=== PATIENT | female | born 1930 | race Caucasian/White ===

== ENCOUNTER 2018-06-13 20:09 | Observation (INO) ==
--- NOTE | 2018-06-13 23:20 | Internal Med History&Physical ---
Date of Encounter: 06/14/18 Time of Encounter: 23:20 Internal Medicine - H&P: HPI Chief complaint: AFib from doctors office Admitted From: Hospital to Hospital Transfer Plans for Post Hospital Care: Transfer [facility] Care History of present illness: Ms. Obregon is a 88 year old female with a PMhx of chronic AFib, CHF, dementia, DM2, HLD, HTN presented to [place] from (insurance processing clerk) office due to AFib with RVR. She is notably AOx2 and does not appear to be a good historian. She states that she was told to go to [place] ED due to her heart racing but states she was asymptomatic. She denies chest pain, SOB, palpitations , dizziness or lightheadedness. She has not had recent illness or medications changes that she knows of . Denies fevers, chills, nausea, vomiting, changes to bowel movements, dysuria or frequency, cough. She is anticoagulated with Pradaxa. She does admit to poor oral oral intake recently and states she may be dehydrated. In [place] ED, EKG confirmed AFib RVR with rate in 120s. Vital significant for tachycardia and blood pressure was borderline at 91/74. She was tolerating room air. Lab results significant for WBC elevation of 20.3, BUN/creatinine/ creatinine of 42/1.65, magnesium of 1.5, urinalysis showing small amount of leukocyte esterase, WBCs. Lactic acid of 2.1. Past medical history as above Past surgical history patient denies Past social history patient denies Past Med Surg Social Fam HX - Past Medical History Medical history: atrial fibrillation, CHF, dementia, diabetes, hyperlipidemia, hypertension Psychiatric history: anxiety, depression - Social History Smoking Status: Unknown if ever smoked Smokeless Tobacco Status: No Alcohol use: none Drug use: none Internal Medicine - H&P: Meds Atorvastatin [Lipitor] 10 mg PO HS 06/13/18 [History] Cholecalciferol (Vitamin D3) [Vitamin D] 1,000 unit PO DAILY 06/13/18 [History] Cyanocobalamin (Vitamin B-12) [Vitamin B-12] 1,000 mcg PO DAILY 06/13/18 [ History] Dabigatran [Pradaxa] 150 mg PO BID 06/13/18 [History] Dextromethorphan HBr/Quinidine [Nuedexta 20-10 mg Capsule] 1 each PO BID [History] Divalproex Sodium [Depakote] 125 mg PO TID 06/13/18 [History] Duloxetine HCl [Cymbalta] 60 mg PO DAILY 06/13/18 [History] Ferrous Sulfate [Iron] 325 mg PO DAILY 06/13/18 [History] Furosemide [Lasix] 20 mg PO DAILY 06/13/18 [History] Gabapentin [Neurontin] 100 mg PO TID 06/13/18 [History] LORazepam [Ativan] 0.5 mg PO BID PRN 06/13/18 [History] Lisinopril [Zestril] 20 mg PO DAILY 06/13/18 [History] Magnesium Hydroxide [Milk of Magnesia] 400 mg PO 06/13/18 [History] Memantine [Namenda] 5 mg PO BID 06/13/18 [History] Memantine [Namenda] 5 mg PO BID 06/13/18 [History] Metformin HCl 500 mg PO BID 06/13/18 [History] Metoprolol [Lopressor] 100 mg PO BID 06/13/18 [History] Mirtazapine [Remeron] 15 mg PO HS 06/13/18 [History] Mv,Calcium,Min/Iron/Folic/Vitk [Multi For Her Tablet] 1 each PO DAILY 06/13/18 [ History] Polyethylene Glycol 3350 [MiraLAX Powder Bulk 17.9 Oz] 1 scoop PO DAILY [History] Sennosides [Senokot] 17.2 mg PO DAILY 06/13/18 [History] glipiZIDE [Glucotrol] 5 mg PO DAILY 06/13/18 [History] raNITIdine HCl [Zantac] 150 mg PO HS 06/13/18 [History] 3 Allergy/AdvReac Type Severity Reaction Status Date / Time No Known Allergies Allergy Verified 06/13/18 17:12 All Systems PM: A 10-system review of systems was performed and is negative for pertinent findings except as documented above in the HPI. - Constitutional Constitutional: no chills, no fatigue, no fever(s), no malaise - Cardiovascular Cardiovascular ROS IM: no chest pain, no dyspnea, no dyspnea on exertion, no edema, no lightheadedness, no orthopnea - Respiratory Respiratory: no cough, no dyspnea, no dyspnea on exertion - Gastrointestinal Gastrointestinal: no abdominal pain, no constipation, no diarrhea, no hematochezia, no melena, no nausea, no vomiting - Genitourinary Genitourinary: no dysuria, no flank pain, no urinary frequency, no urinary incontinence, no urinary urgency - Musculoskeletal Musculoskeletal ROS IM: no numbness, no tingling - Integumentary Integumentary IM: no rash - Neurological Neurological ROS: no confusion, no numbness, no tingling, no vertigo, no weakness - Constitutional Vitals: Temp Pulse Resp BP Pulse Ox 98.1 F 62 14 96/62 96 06/13/18 22:45 06/13/18 22:45 06/13/18 22:45 06/13/18 22:45 06/13/18 22:45 Exam: Gen.: Vitals noted. No acute distress. AAOx2, resting comfortably in bed HEENT: PERRL/EOMI, oropharynx clear, Normocephalic, atraumatic, mildly dry mucus membranes Cardiac: Irregularly irregular, no murmur, +S1/S2, rate controlled Pulmonary: CTA bilaterally, no wheezes, rales or rhonchi, equal chest expansion Abdomen: soft, nontender, BS noted, no guarding, no rebound. Back, no flank tenderness bilaterally Extremities: no BLE edema, nontender calf, no cyanosis or clubbing, some bruising noted Neuro: A&Ox2, moves all extremities, no focal deficits Psych: Appropriate mood and behavior - Assessment and plan (1) Severe sepsis Current Visit: Yes Status: Acute Assessment and plan: - Tachycardic in 120s, WBC of 20.3 at [place], lactic acid of 2.1 - Likely source is UTI given UA with LE and WBC - Urine and blood culture collected in [place] and pending results - Previous cultures (03/17) show E.coli - Started on rocephin, will continue - 1L NS given in ED Plan - Continue Rocephin 1g q24 hours - Trend lactate - Give another 1L bolus over 4 hours as she is mildly hypotensive at this time in 90s/60s - HR controlled after cardizem gtt as below. - Follow culture results. (2) UTI (urinary tract infection) Current Visit: Yes Status: Acute Assessment and plan: - As above - Rocephin, fluids, follow lactic acid Qualifiers: Urinary tract infection type: acute cystitis Hematuria presence: without hematuria Qualified Code(s): N30.00 - Acute cystitis without hematuria (3) Atrial fibrillation with RVR Current Visit: Yes Status: Acute Assessment and plan: Resolved. - Chronic AFib on Metoprolol 100 mg BID and pradaxa - EKG confirmation from [place] reviewed. Troponin negative - Likely exacerbated in the setting of infection, dehydration - HR currently in 60s with boarderline BP - Giving fluids and will monitor - Continue BB when BP allows - Continue home AC. (4) YRIS (acute kidney injury) Current Visit: Yes Status: Acute Assessment and plan: BUN/ Cr of 42/1.65 in [place]. Baseline Cr of 1.2 (CKD3) - Likely secondary to dehydration, patient admits to poor oral intake - Other possibilities include UTI/pyelonephritis however patient denies flank pain and is afebrile - Fluids as above. Given additional 1L and re-evaluate with lactic and AM labs - Continue to monitor (5) Diabetes mellitus Current Visit: Yes Status: Acute Assessment and plan: - BS of 225 on admission. - likely elevated in the setting of infection - Start SSI and obtain A1c with AM labs - Continue to monitor. ADA diet Qualifiers: Diabetes mellitus type: type 2 Diabetes mellitus mcfp insulin use: without terminal clerk use Diabetes mellitus complication status: with kidney complications Diabetes mellitus complication detail: with chronic kidney disease Chronic kidney disease stage: stage 3 (moderate) Qualified Code(s): E11.22 - Type 2 diabetes mellitus with diabetic chronic kidney disease; N18.3 - Chronic kidney disease, stage 3 (moderate) (6) HTN (hypertension) Current Visit: Yes Status: Chronic Assessment and plan: - BP in 90s/60s most recently, likely secondary to cardizem gtt in [place] ED - Will continue to monitor and hold AM meds - Give fluids as above - Restart BB as BP tolerates in AM Qualifiers: Hypertension type: essential hypertension Qualified Code(s): I10 - Essential (primary) hypertension (7) HLD (hyperlipidemia) Current Visit: Yes Status: Chronic Assessment and plan: continue statin. - Consider discontinuing as she is >85 years old Qualifiers: Hyperlipidemia type: unspecified Qualified Code(s): E78.5 - Hyperlipidemia , unspecified (8) Dementia Current Visit: Yes Status: Acute Assessment and plan: - Unclear baseline, AOx2 - Continue home meds Qualifiers: Dementia type: Alzheimer's disease Alzheimer's disease onset: unspecified onset Dementia behavioral disturbance: without behavioral disturbance Qualified Code(s): G30.9 - Alzheimer's disease, unspecified; F02.80 - Dementia in other diseases classified elsewhere without behavioral disturbance (9) DVT prophylaxis Current Visit: Yes Status: Acute Assessment and plan: continue home pradaxa - Time Spent With Patient Total time spent is greater than 50% in coordination of care (as documented) at patient's floor/unit and/or counseling patient:
[2018-06-13] MEDS ORDERED: traMADol 50 MG TABLET PO PRN (23:48)
[2018-06-13] MEDS ORDERED: Naloxone 0.4 MG/ML INJ IVP PRN (23:48)
[2018-06-13] MEDS ORDERED: Acetaminophen 325 MG TABLET PO PRN (23:48)
[2018-06-13] MEDS ORDERED: Dextrose Gel 15 GM/37.5 ML TUBE PO PRN ×2 (23:49)
[2018-06-13] MEDS ORDERED: D5% in Water 1,000 ML IVC PRN (23:49)
[2018-06-13] MEDS ORDERED: *HR* Dextrose 50 % in Water (Syg) 50 ML SYRINGE IVP PRN (23:49)
[2018-06-13] MEDS ORDERED: *HR* LORazepam 0.5 MG TABLET PO PRN (23:50)
[2018-06-14] MEDS ORDERED: 0.9 % Sodium Chloride 1,000 ML IVC SCH (00:15)
[2018-06-14 05:57] LABS: Basophils % 0.2 %; Eosinophils # 0.1 K/mcL (0.0-0.6); Hematocrit 30.9 % (35.3-44.9); Hemoglobin 9.8 g/dL (11.5-15.4); Immature Granulocytes % 0.3 % (0-4); Lymphocytes # 2.1 K/mcL (0.6-4.6); Mean Corpuscular HGB Conc 31.7 g/dL (31.6-35.5); Mean Corpuscular Hemoglobin 30.2 pg (28.0-33.3); Mean Corpuscular Volume 95.1 fL (83.0-100.0); Mean Platelet Volume 10.4 fL (9.4-12.4); Monocytes # 1.1 K/mcL (0.0-1.3); Monocytes % 8.1 %; Neutrophils # 9.8 K/mcL (1.6-8.9); Platelet Count 150 K/mcL (140-400); Red Blood Count 3.25 M/mcL (3.82-4.97); Red Cell Distribution Width 13.7 % (11.5-14.5); Segmented Neutrophils % 74.4 %
--- NOTE | 2018-06-14 06:40 | Sepsis Event Note ---
Sepsis Reassessment Note - Evaluation Sepsis Screen: No Definite Risk Current Stage of Sepsis: ruled out (resolved, 1/ SIRS) Reason for ruling out sepsis: No longer meets SIRS criteria. HR in 60s, lactic acid improved to 1.0. WBC remains elevated at 13 Possible Source of Sepsis: genitourinary - Focused Exam Date of Encounter: 06/14/18 Time of Encounter: 06:37 Vital Signs: Vital Signs Temp Pulse Resp BP Pulse Ox 06/14/18 04:20 97.8 F 78 15 93/60 96 06/13/18 22:45 98.1 F 62 14 96/62 96 Respiratory Exam: Present: CTA bilaterally Cardiovascular Exam: Present: irregulary irregular Capillary Refill: < 2 seconds Peripheral Pulse Strength: 2+ slightly diminished Peripheral Pulse Location: Radial Skin Exam: normal turgor
[2018-06-14 06:47] LABS: Calcium 7.5 mg/dL (8.6-10.3); Magnesium 1.7 mg/dL (1.6-2.6); Potassium 3.6 mEq/L (3.5-5.1)
[2018-06-14] MEDS: Insulin LISPRO 300 UNITS/3 ML VIAL SQ SCH ×3 (08:06→16:46)
[2018-06-14] MEDS: cefTRIAXone 1,000 MG in Water for inj. (sterile) 20 ML 10 ML IVP SCH (08:19)
[2018-06-14] MEDS: Sennosides 8.6 MG TABLET PO SCH (08:59)
[2018-06-14] MEDS: *HR* Dabigatran 75 MG CAPSULE PO SCH ×2 (08:59→20:51)
[2018-06-14] MEDS: Divalproex Sodium 125 MG CAPSULE PO SCH ×3 (08:59→20:51)
[2018-06-14] MEDS: Gabapentin 100 MG CAPSULE PO SCH ×3 (08:59→20:51)
[2018-06-14] MEDS ORDERED: *HR* Dabigatran 150 MG CAPSULE PO SCH (09:00)
--- NOTE | 2018-06-14 13:52 | Internal Med Progress Note ---
Hospitalist Progress Note - Encounter Date of Encounter: 06/14/18 Time of Encounter: 13:00 - Subjective Interval History: No acute events overnight - Exam Vitals: Temp Pulse Resp BP Pulse Ox 99.3 F 116 17 101/61 96 06/14/18 11:28 06/14/18 11:28 06/14/18 11:28 06/14/18 11:28 06/14/18 11:28 Exam: Gen.: Vitals noted. No acute distress. AAOx2, resting comfortably in bed HEENT: PERRL/EOMI, oropharynx clear, Normocephalic, atraumatic, mildly dry mucus membranes Cardiac: Irregularly irregular, no murmur, +S1/S2, rate controlled Pulmonary: CTA bilaterally, no wheezes, rales or rhonchi, equal chest expansion Abdomen: soft, nontender, BS noted, no guarding, no rebound. Back, no flank tenderness bilaterally Extremities: no BLE edema, nontender calf, no cyanosis or clubbing, some bruising noted Neuro: A&Ox2, moves all extremities, no focal deficits Psych: Appropriate mood and behavior - Assessment and Plan (1) Severe sepsis Current Visit: Yes Status: Acute Assessment and Plan: - Tachycardic in 120s, WBC of 20.3 at [place], lactic acid of 2.1 - Likely source is UTI given UA with LE and WBC - Urine and blood culture collected in [place] and pending results - Previous cultures (03/17) show E.coli - Started on rocephin, will continue - 1L NS given in ED O06/14. Continue on ceftriaxone. Started on po beta blockers for afib (2) Atrial fibrillation with RVR Current Visit: Yes Status: Acute Assessment and Plan: Resolved. - Chronic AFib on Metoprolol 100 mg BID and pradaxa - EKG confirmation from [place] reviewed. Troponin negative - Likely exacerbated in the setting of infection, dehydration - HR currently in 60s with boarderline BP - Giving fluids and will monitor - Continue BB when BP allows - Continue home AC. 06/14. Started on metoprolol po (3) UTI (urinary tract infection) Current Visit: Yes Status: Acute Assessment and Plan: - As above - Rocephin, fluids, follow lactic acid (4) YRIS (acute kidney injury) Current Visit: Yes Status: Acute Assessment and Plan: BUN/ Cr of 42/1.65 in [place]. Baseline Cr of 1.2 (CKD3) - Likely secondary to dehydration, patient admits to poor oral intake - Other possibilities include UTI/pyelonephritis however patient denies flank pain and is afebrile - Fluids as above. Given additional 1L and re-evaluate with lactic and AM labs - Continue to monitor (5) DVT prophylaxis Current Visit: Yes Status: Acute Assessment and Plan: continue home pradaxa (6) Diabetes mellitus Current Visit: Yes Status: Acute Assessment and Plan: - BS of 225 on admission. - likely elevated in the setting of infection - Start SSI and obtain A1c with AM labs - Continue to monitor. ADA diet (7) HTN (hypertension) Current Visit: Yes Status: Chronic Assessment and Plan: - BP in 90s/60s most recently, likely secondary to cardizem gtt in [place] ED - Will continue to monitor and hold AM meds - Give fluids as above - Restart BB as BP tolerates in AM (8) HLD (hyperlipidemia) Current Visit: Yes Status: Chronic Assessment and Plan: continue statin. - Consider discontinuing as she is >85 years old (9) Dementia Current Visit: Yes Status: Acute Assessment and Plan: - Unclear baseline, AOx2 - Continue home meds - Time Spent with Patient Total time spent is greater than 50% in coordination of care (as documented) at patient's floor/unit and/or counseling patient: Internal Medicine: Result - Labs CBC & Chem 7: 06/14/18 05:45 06/14/18 05:45 Labs: Short CBC 06/14/18 Range/Units 05:45 WBC 13.1 H (4.3-11.1) K/mcL Hgb 9.8 L D (11.5-15.4) g/dL Hct 30.9 L (35.3-44.9) % Plt Count 150 (140-400) K/mcL Neutrophils # 9.8 H (1.6-8.9) K/mcL BMP 06/14/18 05:45 Sodium 136 Potassium 3.6 Chloride 108 H Carbon Dioxide 16 L BUN 44 H Creatinine 1.68 H Glucose 150 H Calcium 7.5 L Consult Discharge Plan - Plan Referrals: Chanell Dasilva MD [Primary Care Provider] - (3) UTI (urinary tract infection) Qualifiers: Urinary tract infection type: acute cystitis Hematuria presence: without hematuria Qualified Code(s): N30.00 - Acute cystitis without hematuria (6) Diabetes mellitus Qualifiers: Diabetes mellitus type: type 2 Diabetes mellitus half-way insulin use: without half-way use Diabetes mellitus complication status: with kidney complications Diabetes mellitus complication detail: with chronic kidney disease Chronic kidney disease stage: stage 3 (moderate) Qualified Code(s): E11.22 - Type 2 diabetes mellitus with diabetic chronic kidney disease; N18.3 - Chronic kidney disease, stage 3 (moderate) (7) HTN (hypertension) Qualifiers: Hypertension type: essential hypertension Qualified Code(s): I10 - Essential (primary) hypertension (8) HLD (hyperlipidemia) Qualifiers: Hyperlipidemia type: unspecified Qualified Code(s): E78.5 - Hyperlipidemia, unspecified (9) Dementia Qualifiers: Dementia type: Alzheimer's disease Alzheimer's disease onset: unspecified onset Dementia behavioral disturbance: without behavioral disturbance Qualified Code(s): G30.9 - Alzheimer's disease, unspecified; F02.80 - Dementia in other diseases classified elsewhere without behavioral disturbance
[2018-06-14] MEDS: Metoprolol 100 MG TABLET PO SCH ×2 (15:01→20:51)
[2018-06-14] MEDS: 0.9 % Sodium Chloride 1,000 ML IVC SCH (16:49)
[2018-06-14] MEDS ORDERED: Famotidine 20 MG TABLET PO SCH (21:00)
[2018-06-14] MEDS ORDERED: Insulin LISPRO 300 UNITS/3 ML VIAL SQ SCH (21:00)
[2018-06-15 06:17] LABS: Basophils # 0.1 K/mcL (0.0-0.2); Basophils % 0.5 %; Eosinophils # 0.2 K/mcL (0.0-0.6); Eosinophils % 2.2 %; Hematocrit 30.2 % (35.3-44.9); Hemoglobin 9.8 g/dL (11.5-15.4); Immature Granulocytes % 0.5 % (0-4); Lymphocytes # 1.3 K/mcL (0.6-4.6); Lymphocytes % 11.8 %; Mean Corpuscular HGB Conc 32.5 g/dL (31.6-35.5); Mean Corpuscular Hemoglobin 30.5 pg (28.0-33.3); Mean Corpuscular Volume 94.1 fL (83.0-100.0); Mean Platelet Volume 11.1 fL (9.4-12.4); Monocytes # 0.8 K/mcL (0.0-1.3); Monocytes % 7.8 %; Neutrophils # 8.3 K/mcL (1.6-8.9); Platelet Count 176 K/mcL (140-400); Red Blood Count 3.21 M/mcL (3.82-4.97); Red Cell Distribution Width 13.8 % (11.5-14.5); Segmented Neutrophils % 77.2 %
[2018-06-15 06:35] LABS: Calcium 8.2 mg/dL (8.6-10.3); Magnesium 1.8 mg/dL (1.6-2.6); Potassium 4.3 mEq/L (3.5-5.1)
[2018-06-15] MEDS: Sennosides 8.6 MG TABLET PO SCH (07:53)
[2018-06-15] MEDS: *HR* Dabigatran 75 MG CAPSULE PO SCH (07:53)
[2018-06-15] MEDS: Metoprolol 100 MG TABLET PO SCH (07:53)
[2018-06-15] MEDS: Gabapentin 100 MG CAPSULE PO SCH (07:53)
[2018-06-15] MEDS: cefTRIAXone 1,000 MG in Water for inj. (sterile) 20 ML 10 ML IVP SCH (07:54)
[2018-06-15] MEDS: Divalproex Sodium 125 MG CAPSULE PO SCH (07:54)
[2018-06-15] MEDS: 0.9 % Sodium Chloride 1,000 ML IVC SCH (08:05)
[2018-06-15] MEDS: Insulin LISPRO 300 UNITS/3 ML VIAL SQ SCH (08:10)
--- NOTE | 2018-06-15 10:32 | Discharge Summary ---
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 She is notably AOx2 and does not appear to be a good historian. She states that she was told to go to [place] ED due to her heart racing but states she was asymptomatic. She denies chest pain, SOB, palpitations, dizziness or lightheadedness. She has not had recent illness or medications changes that she knows of . Denies fevers, chills, nausea, vomiting, changes to bowel movements, dysuria or frequency, cough. She is anticoagulated with Pradaxa. She does admit to poor oral oral intake recently and states she may be dehydrated. In [place] ED, EKG confirmed AFib RVR with rate in 120s- Tachycardic in 120s , WBC of 20.3 at [place], lactic acid of 2.1. She was assessed with sepsis secondary to UTI and afib with RVR. She was hydrated with IV fluids and started on ceftriaxone and beta blockers. Her heart rate was controlled with beta blockers and her WBC trended down. It is likely her a fib was worsened by sepsis. She was also noted to have an yris which improved with IV fluids. [facility] of ciprofloxacin po once her leukocytosis resolved. 35 minutes was spent discharging this patient - (2) Atrial fibrillation with RVR Priority: Secondary Status: Acute (3) UTI (urinary tract infection) Priority: Secondary Status: Acute Qualifiers: Urinary tract infection type: acute cystitis Hematuria presence: without hematuria Qualified Code(s): N30.00 - Acute cystitis without hematuria (4) RYIS (acute kidney injury) Priority: Secondary Status: Acute (5) DVT prophylaxis Priority: Secondary Status: Acute (6) Diabetes mellitus Priority: Secondary Status: Acute Qualifiers: Diabetes mellitus type: type 2 Diabetes mellitus skilled nursing insulin use: without salesperson jewelry use Diabetes mellitus complication status: with kidney complications Diabetes mellitus complication detail: with chronic kidney disease Chronic kidney disease stage: stage 3 (moderate) Qualified Code(s): E11.22 - Type 2 diabetes mellitus with diabetic chronic kidney disease; N18.3 - Chronic kidney disease, stage 3 (moderate) (7) HTN (hypertension) Priority: Secondary Status: Chronic Qualifiers: Hypertension type: essential hypertension Qualified Code(s): I10 - Essential (primary) hypertension (8) HLD (hyperlipidemia) Priority: Secondary Status: Chronic Qualifiers: Hyperlipidemia type: unspecified Qualified Code(s): E78.5 - Hyperlipidemia , unspecified (9) Dementia Priority: Secondary Status: Acute Qualifiers: Dementia type: Alzheimer's disease Alzheimer's disease onset: unspecified onset Dementia behavioral disturbance: without behavioral disturbance Qualified Code(s): G30.9 - Alzheimer's disease, unspecified; F02.80 - Dementia in other diseases classified elsewhere without behavioral disturbance Hospital course: Ms. Obregon is a 88 year old female - Time Spent with Patient Total time spent providing and/or coordinating discharge services: - Discharge Medications Prescriptions: Ciprofloxacin [Cipro] 500 mg PO DAILY 3 Days #3 tablet Home Medications: Atorvastatin [Lipitor] 10 mg PO HS 06/13/18 [History] Cholecalciferol (Vitamin D3) [Vitamin D3] 1,000 unit PO DAILY 06/13/18 [History] Cyanocobalamin (Vitamin B-12) [Vitamin B-12] 1,000 mcg PO DAILY 06/13/18 [ History] Dabigatran [Pradaxa] 150 mg PO BID 06/13/18 [History] Dextromethorphan HBr/Quinidine [Nuedexta 20-10 mg Capsule] 1 each PO BID [History] Divalproex Sodium [Depakote] 125 mg PO TID 06/13/18 [History] Duloxetine HCl [Cymbalta] 60 mg PO DAILY 06/13/18 [History] Ferrous Sulfate [Iron] 325 mg PO DAILY 06/13/18 [History] Furosemide [Lasix] 20 mg PO DAILY 06/13/18 [History] Gabapentin [Neurontin] 100 mg PO TID 06/13/18 [History] LORazepam [Ativan] 0.5 mg PO BID PRN 06/13/18 [History] Lisinopril [Zestril] 20 mg PO DAILY 06/13/18 [History] Magnesium Hydroxide [Milk of Magnesia] 2,400 mg PO DAILY PRN 06/13/18 [History] Memantine [Namenda] 5 mg PO BID 06/13/18 [History] Metformin HCl 500 mg PO BID 06/13/18 [History] Mirtazapine [Remeron] 15 mg PO HS 06/13/18 [History] Mv,Calcium,Min/Iron/Folic/Vitk [Multi For Her Tablet] 1 each PO DAILY 06/13/18 [ History] Polyethylene Glycol 3350 [MiraLAX Powder Bulk 17.9 Oz] 1 scoop PO DAILY [History] Sennosides [Senokot] 17.2 mg PO DAILY 06/13/18 [History] raNITIdine HCl [Zantac] 150 mg PO HS 06/13/18 [History] Acetaminophen [Tylenol] 1,000 mg PO TID PRN 06/14/18 [History] Dextran 70/Hypromellose [Artificial Tears] 1 drop BOTH EYES Q4H PRN 06/14/18 [ History] Guaifenesin [Robafen] 100 mg PO Q6-8H PRN 06/14/18 [History] MOM Conc [MILK OF MAGNESIA conc] 30 ml PO DAILY PRN 06/14/18 [History] Metoprolol [Lopressor] 100 mg PO BID MDD HOLD IF PULSE <55 06/14/18 [History] glipiZIDE [Glucotrol] 5 mg PO 0800 06/14/18 [History] Ciprofloxacin [Cipro] 500 mg PO DAILY 3 Days #3 tablet 06/15/18 [Rx] Allergies/Adverse Reactions: 3 Allergy/AdvReac Type Severity Reaction Status Date / Time No Known Allergies Allergy Verified 06/14/18 08:33 Date of admission: 06/13/18 22:30 Primary care physician: Chanell Dasilva Consults: 06/14/18 08:40 Consult to Manager Research And Development [CONS] Routine Reason for SW Consult: rtn jose guadalupe [place] - Constitutional Vitals: Temp Pulse Resp BP Pulse Ox 98.9 F 102 15 122/72 90 06/15/18 06:51 06/15/18 06:51 06/15/18 06:51 06/15/18 06:51 06/15/18 06:51 - Head Head exam: Present: atraumatic, normocephalic - Eye Eye exam: Present: PERRL, conjuntiva pink, sclera anicteric Pupils: Present: PERRL - Neck Neck exam general surgery: Present: supple, trachea midline. Absent: lymphadenopathy - Respiratory Respiratory exam: Present: CTAB. Absent: accessory muscle use, rales, rhonchi, wheezes - Cardiovascular Cardiovascular exam: Present: irregular rhythm, +S1, +S2. Absent: diastolic murmur, gallop, rubs, systolic murmur - GI/Abdominal GI/Abdominal exam: Present: normal bowel sounds, soft, no peritoneal signs. Absent: distended, tenderness - Extremities Exam Extremities exam: Present: warm, radial pulses palpable and symmetrical. Absent : calf tenderness, cyanotic, pedal edema - Neurological Exam Neurological exam: Present: CN II-XII intact, oriented X3, no focal deficits. Absent: pronater drift, facial droop, speech deficit - Skin Skin exam: Present: dry, intact - Patient Status Disposition: Transfer SNF Condition: Fair - Discharge Instructions Follow Up With: Chanell Dasilva MD [Primary Care Provider] -
--- NOTE | 2018-06-15 10:42 | Physician Discharge Referral ---
- Diagnosis (1) Severe sepsis Priority: Primary Status: Acute (2) Atrial fibrillation with RVR Priority: Primary Status: Acute (3) UTI (urinary tract infection) Status: Acute (4) YRIS (acute kidney injury) Status: Acute (5) DVT prophylaxis Status: Acute (6) Diabetes mellitus Status: Acute (7) HTN (hypertension) Status: Chronic (8) HLD (hyperlipidemia) Status: Chronic (9) Dementia Status: Acute - Transfer Medications Prescriptions: Ciprofloxacin [Cipro] 500 mg PO DAILY 3 Days #3 tablet Home Medications: Atorvastatin [Lipitor] 10 mg PO HS 06/13/18 [History] Cholecalciferol (Vitamin D3) [Vitamin D3] 1,000 unit PO DAILY 06/13/18 [History] Cyanocobalamin (Vitamin B-12) [Vitamin B-12] 1,000 mcg PO DAILY 06/13/18 [ History] Dabigatran [Pradaxa] 150 mg PO BID 06/13/18 [History] Dextromethorphan HBr/Quinidine [Nuedexta 20-10 mg Capsule] 1 each PO BID [History] Divalproex Sodium [Depakote] 125 mg PO TID 06/13/18 [History] Duloxetine HCl [Cymbalta] 60 mg PO DAILY 06/13/18 [History] Ferrous Sulfate [Iron] 325 mg PO DAILY 06/13/18 [History] Furosemide [Lasix] 20 mg PO DAILY 06/13/18 [History] Gabapentin [Neurontin] 100 mg PO TID 06/13/18 [History] LORazepam [Ativan] 0.5 mg PO BID PRN 06/13/18 [History] Lisinopril [Zestril] 20 mg PO DAILY 06/13/18 [History] Magnesium Hydroxide [Milk of Magnesia] 2,400 mg PO DAILY PRN 06/13/18 [History] Memantine [Namenda] 5 mg PO BID 06/13/18 [History] Metformin HCl 500 mg PO BID 06/13/18 [History] Mirtazapine [Remeron] 15 mg PO HS 06/13/18 [History] Mv,Calcium,Min/Iron/Folic/Vitk [Multi For Her Tablet] 1 each PO DAILY 06/13/18 [ History] Polyethylene Glycol 3350 [MiraLAX Powder Bulk 17.9 Oz] 1 scoop PO DAILY [History] Sennosides [Senokot] 17.2 mg PO DAILY 06/13/18 [History] raNITIdine HCl [Zantac] 150 mg PO HS 06/13/18 [History] Acetaminophen [Tylenol] 1,000 mg PO TID PRN 06/14/18 [History] Dextran 70/Hypromellose [Artificial Tears] 1 drop BOTH EYES Q4H PRN 06/14/18 [ History] Guaifenesin [Robafen] 100 mg PO Q6-8H PRN 06/14/18 [History] MOM Conc [MILK OF MAGNESIA conc] 30 ml PO DAILY PRN 06/14/18 [History] Metoprolol [Lopressor] 100 mg PO BID MDD HOLD IF PULSE <55 06/14/18 [History] glipiZIDE [Glucotrol] 5 mg PO 0800 06/14/18 [History] Ciprofloxacin [Cipro] 500 mg PO DAILY 3 Days #3 tablet 06/15/18 [Rx] Allergies/Adverse Reactions: 3 Allergy/AdvReac Type Severity Reaction Status Date / Time No Known Allergies Allergy Verified 06/14/18 08:33 - Respiratory Orders Smoking Cessation: Smoking cessation has been advised. For more information, call the [place] Tobacco Quit Line at 1-328-XVTQ-NOW. - Mobility Orders Ambulate - Rehabiliation Orders Rehab Potential: Good - Diet Orders Cardiac CERTIFICATION: I certify that the transfer of the above named patient to an Extended Care Facility is necessary for the continuing treatment of the diagnosis listed. The above information is true and accurate reflection of patient's current condition. Confidential - Redisclosure prohibited without a patient's written consent.
[2018-06-15 11:23] VITALS: BP 145/81
[2018-06-15] MEDS ORDERED: *HR* Dabigatran 150 MG CAPSULE PO SCH (21:00)
== END 2018-06-15 12:26 ==
LOC: 2ANU
PROVIDERS: ADMIT Internal Medicine; ATTEND Internal Medicine